=== PATIENT | female | born 1990 | race Hispanic/Latino ===

== ENCOUNTER 2017-05-21 17:49 | Emergency (ER) | payer BC ==
[~2017-05-21] VITALS: Ht 152.4 cm; Wt 73.0 kg
[2017-05-21] MEDS ORDERED: SODIUM CHLORIDE 0.9% 1000ML 1,000 ML IV SCH (19:00)
[2017-05-21] MEDS ORDERED: POTASSIUM CHLORIDE 10 MEQ TABCR PO ONE (19:00)
[2017-05-21] MEDS ORDERED: POTASSIUM CHLORIDE 20 MEQ TAB CR PO STA (19:09)
[2017-05-21] MEDS ORDERED: ACETAMINOPHEN 325 MG TAB PO ONE (19:15)
[2017-05-21] MEDS ORDERED: NUVARING VAGIN1 EACH (19:33)
[2017-05-21] MEDS ORDERED: ONDANSETRON HCL 4 MG ORAL DISINTEGRATING TAB SL ONE (19:45)
[2017-05-21 20:19] VITALS: BP 100/63
== END 2017-05-21 20:27 | disposition home or self-care (01) ==
LOC: FSED 17:49
DX: R07.89 Other chest pain (principal); R19.7 Diarrhea, unspecified; E87.6 Hypokalemia
CPT/HCPCS: 71046; 80048; 85025; 85379; 93005; 99283

== ENCOUNTER 2020-03-19 12:39 | Emergency (ER) | payer BC ==
[~2020-03-19] VITALS: Ht 152.4 cm; Wt 68.1 kg
[~2020-03-19 12:39] MED LIST: NUVARING VAGIN1 EACH
[2020-03-19] MEDS ORDERED: TAPAZOLE5 MG PO (13:03)
[2020-03-19] MEDS ORDERED: KETOROLAC TROMETHAMINE 30 MG/ML VIAL IV STA (13:04)
[2020-03-19] MEDS ORDERED: SODIUM CHLORIDE 0.9% 1000ML 1,000 ML IV STA (13:04)
[2020-03-19] MEDS ORDERED: ONDANSETRON HCL INJ 2MG/ML 2ML 2 MG/ML VIAL IV STA (13:04)
[2020-03-19] MEDS ORDERED: MORPHINE SULFATE 5 MG/ML VIAL IV ONE (13:15)
[2020-03-19] MEDS ORDERED: SODIUM CHLORIDE FLUSH 10 ML SYR INJ PRN (13:15)
[2020-03-19] MEDS ORDERED: MORPHINE SULFATE INJ 4 MG/ML INJ 1ML IV ONE (13:30)
[2020-03-19] MEDS ORDERED: MORPHINE SULFATE INJ 4 MG/ML INJ 1ML ONE (13:32)
[2020-03-19] MEDS ORDERED: ONDANSETRON HCL INJ 2MG/ML 2ML 2 MG/ML VIAL ONE (13:32)
[2020-03-19] MEDS ORDERED: KETOROLAC TROMETHAMINE 30 MG/ML VIAL ONE (13:32)
[2020-03-19] MEDS ORDERED: SODIUM CHLORIDE 0.9% 1000ML 1,000 ML ONE (13:32)
[2020-03-19] MEDS ORDERED: PHENERGAN SUPP25 MG PR (14:25)
[2020-03-19] MEDS ORDERED: ONDANSETRON ODT8 MG PO (14:25)
[2020-03-19] MEDS ORDERED: FIORICET 50-301 EACH PO (14:25)
[2020-03-19] MEDS ORDERED: PREDNISONE20 MG PO (14:25)
[2020-03-19] MEDS ORDERED: LOMOTIL TABLET1 EACH PO (14:25)
[2020-03-19] MEDS ORDERED: METHYLPREDNISOLONE SOD SUCC 125 MG/2ML VIAL IV ONE (14:30)
[2020-03-19] MEDS ORDERED: METHYLPREDNISOLONE SOD SUCC 125 MG/2ML VIAL ONE (14:41)
[2020-03-19 14:56] VITALS: BP 111/73
== END 2020-03-19 15:09 | disposition home or self-care (01) ==
LOC: FSED 13:12
DX: G43.909 Migraine, unspecified, not intractable, without status migrainosus (principal); R11.2 Nausea with vomiting, unspecified; R19.7 Diarrhea, unspecified; E86.0 Dehydration; E05.00 Thyrotoxicosis with diffuse goiter without thyrotoxic crisis or storm
CPT/HCPCS: 80048; 80076; 81003; 81025; 85025; 96374; 96375; 99283; J1885; J2270; J2405; J2930; J7030

== ENCOUNTER 2020-10-28 14:53 | Emergency (ER) | payer BC ==
[~2020-10-28] VITALS: Ht 152.4 cm; Wt 68.7 kg
[~2020-10-28 14:53] MED LIST changes: +FIORICET 50-301 EACH PO; +LOMOTIL TABLET1 EACH PO; +ONDANSETRON ODT8 MG PO; +PHENERGAN SUPP25 MG PR; +PREDNISONE20 MG PO; +TAPAZOLE5 MG PO
[2020-10-28] MEDS ORDERED: KETOROLAC TROMETHAMINE 60 MG/2 ML VIAL IM ONE (15:45)
[2020-10-28] MEDS ORDERED: KETOROLAC TROMETHAMINE 60 MG/2 ML VIAL ONE (15:51)
[2020-10-28] MEDS ORDERED: ACETAMINOPHEN-1 EAC3 PO (16:16)
== END 2020-10-28 16:25 | disposition home or self-care (01) ==
LOC: FSED 15:35
DX: M25.562 Pain in left knee (principal); M25.561 Pain in right knee; Y93.B1 Activity, exercise machines primarily for muscle strengthening; E05.00 Thyrotoxicosis with diffuse goiter without thyrotoxic crisis or storm
CPT/HCPCS: 73562 ×2; 96372; 99283; J1885